=== PATIENT | female | born 1935 | race Two or more races ===

== ENCOUNTER 2023-06-02 23:38 | Inpatient (IN) | payer MEDICARE ==
[~2023-06-02] VITALS: Ht 167.6 cm; Wt 66.2 kg
[2023-06-03 00:30] LABS: APPEARANCE,URINE CLEAR (CLEAR); BILIRUBIN,URINE NEGATIVE (NEGATIVE); BLOOD, URINE NEGATIVE Ery/uL (NEGATIVE); COLOR,URINE YELLOW (YELLOW); KETONES,URINE NEGATIVE (NEGATIVE); LEUKOCYTE ESTERASE ,URINE NEGATIVE (NEGATIVE); NITRITE, URINE NEGATIVE (NEGATIVE); PROTEIN,URINE NEGATIVE (NEGATIVE); UGLUCOSE NEGATIVE (NEGATIVE); UROBILINOGEN,URINE 0.2 EU/dL (0.2)
[2023-06-03 00:40] LABS: BASOPHILS % (AUTO) 0.5 % (0.0-2.0); EOSINOPHILS # (AUTO) 0.5 K/uL (0.0-0.7); HEMATOCRIT 36 % (33-45); HEMOGLOBIN 11.9 g/dL (11.5-14.8); LYMPHOCYTES # (AUTO) 2.9 K/uL (0.8-4.8); LYMPHOCYTES % (AUTO) 34.5 % (20.0-44.0); MEAN CORPUSCULAR HEMOGLOBIN 29 PG (26.0-33.0); MEAN CORPUSCULAR HGB CONC 33 g/dl (31.0-36.0); MEAN CORPUSCULAR VOLUME 86 fL (82-100); MONOCYTES # (AUTO) 0.7 K/uL (0.1-1.30); MONOCYTES % (AUTO) 8.3 % (2.0-12.0); NEUTROPHILS # (AUTO) 4.2 K/uL (1.8-8.9); NEUTROPHILS % (AUTO) 50.7 % (43.0-81.0); PLATELET COUNT (AUTO) 243 K/uL (150-450); RED BLOOD CELL COUNT(AUTO) 4.17 MIL/uL (4.0-5.2); RED CELL DISTRIBUTION WIDTH 13.4 % (11.5-15.0); WHITE BLOOD COUNT (AUTO) 8.3 K/uL (4.3-11.0)
[2023-06-03] MEDS ORDERED: MULT-754 PO (00:40)
[2023-06-03] MEDS ORDERED: TRAZ-182 PO (00:40)
[2023-06-03] MEDS ORDERED: ROSU10TA2 PO (00:40)
[2023-06-03] MEDS ORDERED: DOCU100C36 PO (00:40)
[2023-06-03] MEDS ORDERED: CYAN10006 IM (00:40)
[2023-06-03] MEDS ORDERED: CHOL400T11 PO (00:40)
[2023-06-03] MEDS ORDERED: QUET25TA PO (00:40)
[2023-06-03 00:45] LABS: AMPHETAMINE, URINE NEGATIVE (NEGATIVE); BARBITURATE, URINE NEGATIVE (NEGATIVE); BENZODIAZEPINE, URINE NEGATIVE (NEGATIVE); CANNABINOID, URINE NEGATIVE (NEGATIVE); COCCAINE, URINE NEGATIVE (NEGATIVE); OPIATE, URINE NEGATIVE (NEGATIVE); PHENCYCLIDINE SCREEN,URINE NEGATIVE (NEGATIVE)
[2023-06-03 01:05] LABS: ALANINE AMINOTRANSFERASE 12 U/L (12-78); ALBUMIN 3.2 g/dL (3.4-5.0); ALCOHOL, BLOOD < 3 mg/dL (0-10); ALKALINE PHOSPHATASE 79 U/L (46-116); ASPARTATE AMINOTRANSFERASE 18 U/L (15-37); BILIRUBIN,DIRECT 0.1 mg/dL (0.0-0.2); BILIRUBIN,TOTAL 0.4 mg/dL (0.2-1.0); CARBON DIOXIDE 23 mmol/L (21-32); CHLORIDE 107 mmol/L (98-107); CREATININE 1.2 mg/dL (0.6-1.3); GLUCOSE 92 mg/dL (74-106); POTASSIUM 3.7 mmol/L (3.5-5.1); SODIUM SERUM 141 mmol/L (136-145); UREA NITROGEN, BLOOD 16 mg/dL (7-18)
[2023-06-03 01:18] LABS: ACETAMINOPHEN <10 ug/ml (10-30)
[2023-06-03] MEDS ORDERED: MAGNESIUM HYDROXIDE 30 ML UDC PO PRN ×2 (02:30→15:30)
[2023-06-03] MEDS ORDERED: MAG HYDROX/AL HYDROX/SIMETH 30 ML UDC PO PRN (02:30)
[2023-06-03] MEDS ORDERED: TEMAZEPAM 7.5 MG CAPSULE PO PRN (02:30)
[2023-06-03] MEDS ORDERED: ACETAMINOPHEN 325 MG TABLET PO PRN ×2 (02:30→15:30)
[2023-06-03] MEDS: BLOOD SUGAR DIAGNOSTIC 1 EACH STRIP IN ONE (02:58)
[2023-06-03 03:22] VITALS: BP 119/70; TEMP 98; O2SAT 98
[2023-06-03 08:00] VITALS: BP 142/61; TEMP 98.1; O2SAT 98
[2023-06-03] MEDS ORDERED: ACET-868 PO (08:21)
[2023-06-03] MEDS ORDERED: ACET-2605 PO (08:21)
[2023-06-03] MEDS ORDERED: MAGN400O6 PO (08:21)
[2023-06-03] MEDS ORDERED: CHOL100043 PO (08:21)
[2023-06-03] MEDS ORDERED: CALC355O18 PO (08:21)
[2023-06-03] MEDS: QUETIAPINE FUMARATE 25 MG TABLET PO SCH (08:56)
[2023-06-03] MEDS: DIVALPROEX SODIUM 125 MG CAP.SPRINK PO SCH (08:57)
[2023-06-03] MEDS: Z GUARD REMEDY 4 OZ OINT TP SCH (09:56)
[2023-06-03] MEDS: CLOTRIMAZOLE 1% 15 GM TUBE TP SCH (09:56)
[2023-06-03] MEDS ORDERED: ACETAMINOPHEN ES 500 MG TABLET PO PRN (15:30)
[2023-06-03] MEDS: CHOLECALCIFEROL 1,000 UNIT TABLET (VIT D3) PO SCH (15:30)
[2023-06-03] MEDS ORDERED: HOME MED MISCELLANEOUS XX SCH (15:30)
[2023-06-03 16:00] VITALS: BP 116/58; TEMP 98.2; O2SAT 97
[2023-06-03] MEDS: LORAZEPAM 0.5 MG TABLET PO PRN (16:23)
[2023-06-03] MEDS: diphenhydrAMINE HCL 50 MG/ML VIAL IM ONE (16:44)
[2023-06-03] MEDS: OLANZAPINE 10 MG VIAL IM ONE (16:45)
[2023-06-03 20:00] VITALS: BP 145/64; TEMP 98.3; O2SAT 99
[2023-06-03] MEDS: QUETIAPINE FUMARATE 100 MG TABLET PO SCH (21:46)
[2023-06-04 08:00] VITALS: BP 127/64; TEMP 97.7; O2SAT 99
[2023-06-04] MEDS: MULTIVITAMIN/LUTEIN/MINERALS 1 TAB PO SCH (08:35)
[2023-06-04] MEDS: ATORVASTATIN 40 MG TABLET PO SCH (08:35)
[2023-06-04] MEDS: DOCUSATE SODIUM 250 MG CAPSULE PO SCH (08:35)
[2023-06-04 16:00] VITALS: BP 114/60; TEMP 98.6; O2SAT 97
[2023-06-04] MEDS: ENSURE ENLIVE 237 ML LIQUID (VANILLA) PO SCH (17:41)
[2023-06-04 20:00] VITALS: BP 132/71; TEMP 97.6; O2SAT 95
[2023-06-05 08:00] VITALS: BP 124/76; TEMP 98.4; O2SAT 96
[2023-06-05 16:00] VITALS: BP 126/71; TEMP 98.4; O2SAT 99
[2023-06-05 16:06] LABS: ALBUMIN 2.8 g/dL (3.4-5.0); BILIRUBIN,TOTAL 0.6 mg/dL (0.2-1.0); CALCIUM, SERUM 8.6 mg/dL (8.5-10.1); CHOLESTEROL 110 mg/dL (<200); CREATININE 1.2 mg/dL (0.6-1.3); HDL CHOLESTEROL 29 mg/dL (40-60); LDL 70 mg/dL (0-99); POTASSIUM 4.2 mmol/L (3.5-5.1); TOTAL PROTEIN, SERUM 6.5 g/dL (6.4-8.2); TRIGLYCERIDES 98 mg/dL (30-150)
[2023-06-05 20:00] VITALS: BP 135/71; TEMP 98.2; O2SAT 97
[2023-06-06 08:00] VITALS: BP 128/91; TEMP 97.8; O2SAT 97
[2023-06-06 16:00] VITALS: BP 110/57; TEMP 98.6; O2SAT 98
[2023-06-06 20:43] VITALS: BP 150/54; TEMP 98.4; O2SAT 98
[2023-06-07 08:00] VITALS: BP 149/79; TEMP 97.9; O2SAT 99
[2023-06-07 16:00] VITALS: BP 103/64; TEMP 97.9; O2SAT 100
[2023-06-07 20:24] VITALS: BP 151/62; TEMP 97.9; O2SAT 98
[2023-06-07 21:54] VITALS: BP 140/68; TEMP 98.6; O2SAT 99
[2023-06-08 16:00] VITALS: BP 124/71; TEMP 98.7; O2SAT 98
[2023-06-08] MEDS: QUETIAPINE FUMARATE 25 MG TABLET PO SCH (21:02)
[2023-06-08 21:25] VITALS: BP 126/58; TEMP 97.9; O2SAT 99
[2023-06-09 08:00] VITALS: BP 134/55; TEMP 98.7; O2SAT 97
[2023-06-09 16:00] VITALS: BP 152/70; TEMP 97.7; O2SAT 100
[2023-06-09 22:10] VITALS: BP 141/66; TEMP 98.6; O2SAT 99
[2023-06-10 08:00] VITALS: BP 137/52; TEMP 97.7; O2SAT 99
[2023-06-10 16:00] VITALS: BP 120/59; TEMP 98.2; O2SAT 96
[2023-06-10] MEDS: Z GUARD REMEDY 4 OZ OINT TP PRN (16:06)
[2023-06-10 20:00] VITALS: BP 120/45; TEMP 98.4; O2SAT 97
[2023-06-11 08:00] VITALS: BP 121/67; TEMP 98; O2SAT 95
[2023-06-11 16:00] VITALS: BP 117/51; TEMP 98.9; O2SAT 99
[2023-06-11 20:00] VITALS: BP 146/50; TEMP 98.1; O2SAT 96
[2023-06-11] MEDS: QUETIAPINE FUMARATE 100 MG TABLET PO SCH (21:17)
[2023-06-12 08:00] VITALS: BP 141/98; TEMP 97.9; O2SAT 99
[2023-06-12 16:00] VITALS: BP 125/94; TEMP 98; O2SAT 99
[2023-06-13 08:00] VITALS: BP 132/67; TEMP 97.8; O2SAT 96
[2023-06-13 16:00] VITALS: BP 125/56; TEMP 98; O2SAT 96
[2023-06-13 21:10] VITALS: BP 136/55; TEMP 98.1; O2SAT 98
[2023-06-14 08:00] VITALS: BP 140/52; TEMP 97.5; O2SAT 95
[2023-06-14 16:00] VITALS: BP 114/55; TEMP 98.6; O2SAT 97
[2023-06-14 20:39] VITALS: BP 128/51; TEMP 98.6; O2SAT 97
[2023-06-15 08:00] VITALS: BP 119/51; TEMP 97.8; O2SAT 97
[2023-06-15 16:08] VITALS: BP 91/71; TEMP 98; O2SAT 96
[2023-06-15 21:05] VITALS: BP 115/53; TEMP 97.9; O2SAT 96
[2023-06-16 08:00] VITALS: BP 131/56; TEMP 97.7; O2SAT 96
== END 2023-06-16 14:20 | DRG 885 ==
LOC: ER 23:40 → GPS 06-03 00:59
PROVIDERS: ADMIT Nurse Practitioner Psychiatric/Mental Health; ATTEND Nurse Practitioner Acute Care
DX: F29 Unspecified psychosis not due to a substance or known physiological condition (principal); F03.92 Unspecified dementia, unspecified severity, with psychotic disturbance; E78.5 Hyperlipidemia, unspecified; F20.9 Schizophrenia, unspecified; Z79.899 Other long term (current) drug therapy; Z20.822 Contact with and (suspected) exposure to COVID-19; Z73.6 Limitation of activities due to disability
CPT/HCPCS: 36415; 71045-TC; 80048-TC; 80053-TC; 80061-TC; 80076-TC; 85025-TC; G0480; J1200; J3490

== ENCOUNTER 2023-09-28 10:24 | Inpatient (IN) | payer MEDICARE, OTHER ==
[~2023-09-28] VITALS: Ht 157.5 cm; Wt 68.9 kg
[~2023-09-28 10:24] MED LIST: ACET-2605 PO; ACET-868 PO; CALC355O18 PO; CHOL100043 PO; CYAN10006 IM; DOCU100C36 PO; MAGN400O6 PO; MULT-754 PO; QUET25TA PO; ROSU10TA2 PO; TRAZ-182 PO
[2023-09-28 10:52] LABS: BASOPHILS % (AUTO) 0.3 % (0.0-2.0); EOSINOPHILS # (AUTO) 0.4 K/uL (0.0-0.7); EOSINOPHILS % (AUTO) 5.7 % (0.0-6.0); HEMATOCRIT 35 % (33-45); HEMOGLOBIN 11.6 g/dL (11.5-14.8); LYMPHOCYTES # (AUTO) 2.4 K/uL (0.8-4.8); LYMPHOCYTES % (AUTO) 34.6 % (20.0-44.0); MEAN CORPUSCULAR HEMOGLOBIN 29 PG (26.0-33.0); MEAN CORPUSCULAR HGB CONC 34 g/dl (31.0-36.0); MEAN CORPUSCULAR VOLUME 85 fL (82-100); MONOCYTES # (AUTO) 0.7 K/uL (0.1-1.30); MONOCYTES % (AUTO) 9.4 % (2.0-12.0); NEUTROPHILS # (AUTO) 3.5 K/uL (1.8-8.9); PLATELET COUNT (AUTO) 180 K/uL (150-450); RED BLOOD CELL COUNT(AUTO) 4.06 MIL/uL (4.0-5.2)
[2023-09-28 10:57] LABS: CALCIUM, SERUM 8.7 mg/dL (8.5-10.1); CARBON DIOXIDE 26 mmol/L (21-32); CHLORIDE 105 mmol/L (98-107); CREATININE 1.2 mg/dL (0.6-1.3); GLUCOSE 110 mg/dL (74-106); POTASSIUM 4.1 mmol/L (3.5-5.1); SODIUM SERUM 138 mmol/L (136-145); UREA NITROGEN, BLOOD 22 mg/dL (7-18)
[2023-09-28 11:02] LABS: ALANINE AMINOTRANSFERASE 20 U/L (12-78); ALBUMIN 3.2 g/dL (3.4-5.0); ALCOHOL, BLOOD < 3 mg/dL (0-10); ALKALINE PHOSPHATASE 73 U/L (46-116); ASPARTATE AMINOTRANSFERASE 23 U/L (15-37); BILIRUBIN,DIRECT 0.1 mg/dL (0.0-0.2); BILIRUBIN,TOTAL 0.6 mg/dL (0.2-1.0); TOTAL PROTEIN, SERUM 7.2 g/dL (6.4-8.2)
[2023-09-28 11:05] LABS: ACETAMINOPHEN <10 ug/ml (10-30); SALICYLATE 1.2 mg/dL (2.8-20.0)
[2023-09-28] MEDS ORDERED: DOCU250C14 PO (12:07)
[2023-09-28] MEDS ORDERED: MULT-213 PO (12:07)
[2023-09-28] MEDS ORDERED: DIVA125C5 PO (12:07)
[2023-09-28] MEDS ORDERED: QUET100T PO (12:07)
[2023-09-28] MEDS ORDERED: ATOR40TA PO (12:07)
[2023-09-28 18:19] LABS: AMPHETAMINE, URINE NEGATIVE (NEGATIVE); BARBITURATE, URINE NEGATIVE (NEGATIVE); BENZODIAZEPINE, URINE NEGATIVE (NEGATIVE); CANNABINOID, URINE NEGATIVE (NEGATIVE); COCCAINE, URINE NEGATIVE (NEGATIVE); OPIATE, URINE NEGATIVE (NEGATIVE); PHENCYCLIDINE SCREEN,URINE NEGATIVE (NEGATIVE)
[2023-09-28 18:32] VITALS: BP 151/75; TEMP 98.7; O2SAT 98
[2023-09-28 19:05] LABS: APPEARANCE,URINE CLEAR (CLEAR); BILIRUBIN,URINE NEGATIVE (NEGATIVE); BLOOD, URINE TRACE-INTA Ery/uL (NEGATIVE); COLOR,URINE YELLOW (YELLOW); KETONES,URINE NEGATIVE (NEGATIVE); LEUKOCYTE ESTERASE ,URINE 1+ (NEGATIVE); NITRITE, URINE NEGATIVE (NEGATIVE); PROTEIN,URINE NEGATIVE (NEGATIVE); UGLUCOSE NEGATIVE (NEGATIVE); UROBILINOGEN,URINE 0.2 EU/dL (0.2)
[2023-09-28 19:55] LABS: RBC,URINE 0-2 /HPF (0-2)
[2023-09-28 19:56] LABS: ADD URINE CULTURE YES; BACTERIA,URINE Few /HPF (None Seen); SQUAMOUS EPITHELIAL CELL,UR Few /HPF (None Seen)
[2023-09-28 20:22] VITALS: BP 115/86; TEMP 98.4; O2SAT 99
[2023-09-29] MEDS: BLOOD SUGAR DIAGNOSTIC 1 EACH STRIP IN ONE (01:26)
[2023-09-29] MEDS ORDERED: MAGNESIUM HYDROXIDE 30 ML UDC PO PRN (01:30)
[2023-09-29] MEDS ORDERED: ACETAMINOPHEN 325 MG TABLET PO PRN (01:30)
[2023-09-29] MEDS ORDERED: MAG HYDROX/AL HYDROX/SIMETH 30 ML UDC PO PRN (01:30)
[2023-09-29 07:46] LABS: ALBUMIN 2.9 g/dL (3.4-5.0); BILIRUBIN,TOTAL 0.6 mg/dL (0.2-1.0); CALCIUM, SERUM 8.9 mg/dL (8.5-10.1); CREATININE 1.3 mg/dL (0.6-1.3); POTASSIUM 3.7 mmol/L (3.5-5.1); TOTAL PROTEIN, SERUM 6.8 g/dL (6.4-8.2)
[2023-09-29 08:00] VITALS: BP 148/74; TEMP 98; O2SAT 98
[2023-09-29] MEDS: DOCUSATE SODIUM 250 MG CAPSULE PO SCH (08:48)
[2023-09-29] MEDS: ATORVASTATIN 40 MG TABLET PO SCH (08:48)
[2023-09-29 08:55] LABS: CHOLESTEROL 123 mg/dL (<200); HDL CHOLESTEROL 33 mg/dL (40-60); LDL 67 mg/dL (0-99); TRIGLYCERIDES 111 mg/dL (30-150)
[2023-09-29 16:00] VITALS: BP 120/76; TEMP 98.1; O2SAT 97
[2023-09-29 20:25] VITALS: BP 130/64; TEMP 98.3; O2SAT 100
[2023-09-29] MEDS: DIVALPROEX SODIUM 125 MG CAP.SPRINK PO SCH (21:09)
[2023-09-29 22:25] VITALS: BP 130/64; TEMP 98.3; O2SAT 100
[2023-09-29] MEDS: QUETIAPINE FUMARATE 100 MG TABLET PO SCH (22:34)
[2023-09-30 08:00] VITALS: BP 116/67; TEMP 98.4; O2SAT 96
[2023-09-30] MEDS: QUETIAPINE FUMARATE 25 MG TABLET PO SCH (09:06)
[2023-09-30 16:35] VITALS: BP 98/56; TEMP 98.2; O2SAT 96
[2023-09-30 20:00] VITALS: BP 122/71; TEMP 98.1; O2SAT 98
[2023-10-01 08:00] VITALS: BP 100/95; TEMP 97.7; O2SAT 98
[2023-10-01 16:00] VITALS: BP 98/59; TEMP 98.2; O2SAT 96
[2023-10-01 20:00] VITALS: BP 115/67; TEMP 98; O2SAT 98
[2023-10-02 08:00] VITALS: BP 119/63; TEMP 97.5; O2SAT 98
[2023-10-02 16:32] VITALS: BP 111/50; TEMP 97.9; O2SAT 95
[2023-10-02 20:00] VITALS: BP 115/68; TEMP 98.2; O2SAT 97
[2023-10-03 08:00] VITALS: BP 109/59; TEMP 97.8; O2SAT 96
[2023-10-03 16:00] VITALS: BP 126/75; TEMP 97.9; O2SAT 98
[2023-10-03 21:20] VITALS: BP 111/98; TEMP 97.9; O2SAT 100
[2023-10-04 08:00] VITALS: BP 115/52; TEMP 98.1; O2SAT 98
[2023-10-04] MEDS: CEPHALEXIN MONOHYDRATE 500 MG CAPSULE PO SCH (12:00)
[2023-10-04 16:00] VITALS: BP 99/53; TEMP 98.1; O2SAT 97
[2023-10-04 20:00] VITALS: BP 110/55; TEMP 98
[2023-10-04 20:23] VITALS: BP 110/55; TEMP 98; O2SAT 97
[2023-10-05 08:00] VITALS: BP 109/63; TEMP 97.7; O2SAT 96
[2023-10-05 15:59] VITALS: BP 119/62; TEMP 98.6; O2SAT 96
[2023-10-05] MEDS: ENSURE ENLIVE CHOC 237 ML CAN PO SCH (18:03)
[2023-10-05 20:51] VITALS: BP 107/45; TEMP 97.5; O2SAT 97
[2023-10-05 22:00] VITALS: BP 110/60; TEMP 98; O2SAT 98
[2023-10-06 16:00] VITALS: BP 125/60; TEMP 98.7; O2SAT 98
[2023-10-06 20:41] VITALS: BP 109/55; TEMP 98.5; O2SAT 97
[2023-10-07 08:00] VITALS: BP 115/54; TEMP 98; O2SAT 98
[2023-10-07 16:00] VITALS: BP 119/60; TEMP 98; O2SAT 98
[2023-10-07 20:00] VITALS: BP 122/62; TEMP 98.3; O2SAT 98
[2023-10-08 08:00] VITALS: BP 117/66; TEMP 98.2; O2SAT 96
[2023-10-08 16:00] VITALS: BP 103/50; TEMP 98; O2SAT 97
[2023-10-08 20:00] VITALS: BP 132/56; TEMP 97.6; O2SAT 99
[2023-10-09 08:00] VITALS: BP 126/71; TEMP 98; O2SAT 99
[2023-10-09 16:00] VITALS: BP 122/64; TEMP 98.7; O2SAT 99
[2023-10-09 20:00] VITALS: BP 144/65; TEMP 98.3; O2SAT 97
[2023-10-10 08:00] VITALS: BP 120/64; TEMP 97.9; O2SAT 98
[2023-10-10 16:00] VITALS: BP 103/53; TEMP 98.1; O2SAT 98
[2023-10-10 20:36] VITALS: BP 124/55; TEMP 97.9; O2SAT 98
[2023-10-11 08:00] VITALS: BP 110/55; TEMP 98.7; O2SAT 95
[2023-10-11 16:00] VITALS: BP 123/56; TEMP 98.7; O2SAT 98
[2023-10-11 16:25] LABS: BASOPHILS % (AUTO) 0.2 % (0.0-2.0); EOSINOPHILS # (AUTO) 0.3 K/uL (0.0-0.7); EOSINOPHILS % (AUTO) 3.7 % (0.0-6.0); HEMATOCRIT 34 % (33-45); HEMOGLOBIN 11.4 g/dL (11.5-14.8); MEAN CORPUSCULAR HEMOGLOBIN 29 PG (26.0-33.0); MEAN CORPUSCULAR HGB CONC 33 g/dl (31.0-36.0); MEAN CORPUSCULAR VOLUME 88 fL (82-100); MONOCYTES # (AUTO) 0.7 K/uL (0.1-1.30); MONOCYTES % (AUTO) 8.5 % (2.0-12.0); NEUTROPHILS # (AUTO) 5.6 K/uL (1.8-8.9); NEUTROPHILS % (AUTO) 64.6 % (43.0-81.0); PLATELET COUNT (AUTO) 156 K/uL (150-450); RED CELL DISTRIBUTION WIDTH 13.8 % (11.5-15.0); WHITE BLOOD COUNT (AUTO) 8.7 K/uL (4.3-11.0)
[2023-10-11 17:38] LABS: ALBUMIN 2.5 g/dL (3.4-5.0); BILIRUBIN,TOTAL 0.6 mg/dL (0.2-1.0); CALCIUM, SERUM 8.9 mg/dL (8.5-10.1); CREATININE 1.1 mg/dL (0.6-1.3); POTASSIUM 4.2 mmol/L (3.5-5.1); TOTAL PROTEIN, SERUM 6.4 g/dL (6.4-8.2)
[2023-10-11 21:28] VITALS: BP 107/60; TEMP 97.5; O2SAT 96
[2023-10-12 08:00] VITALS: BP 111/55; TEMP 98.6; O2SAT 97
[2023-10-12 16:00] VITALS: BP 129/54; TEMP 98.6; O2SAT 98
[2023-10-12 20:33] VITALS: BP 130/50; TEMP 98; O2SAT 97
[2023-10-13 08:00] VITALS: BP 114/55; TEMP 98.1; O2SAT 98
[2023-10-13 14:58] LABS: BASOPHILS % (AUTO) 0.2 % (0.0-2.0); EOSINOPHILS # (AUTO) 0.4 K/uL (0.0-0.7); EOSINOPHILS % (AUTO) 6.8 % (0.0-6.0); HEMATOCRIT 31 % (33-45); HEMOGLOBIN 10.5 g/dL (11.5-14.8); LYMPHOCYTES # (AUTO) 2.2 K/uL (0.8-4.8); LYMPHOCYTES % (AUTO) 36.6 % (20.0-44.0); MEAN CORPUSCULAR HEMOGLOBIN 29 PG (26.0-33.0); MEAN CORPUSCULAR HGB CONC 34 g/dl (31.0-36.0); MEAN CORPUSCULAR VOLUME 87 fL (82-100); MONOCYTES # (AUTO) 0.6 K/uL (0.1-1.30); MONOCYTES % (AUTO) 9.6 % (2.0-12.0); NEUTROPHILS # (AUTO) 2.8 K/uL (1.8-8.9); NEUTROPHILS % (AUTO) 46.8 % (43.0-81.0); PLATELET COUNT (AUTO) 153 K/uL (150-450); RED BLOOD CELL COUNT(AUTO) 3.59 MIL/uL (4.0-5.2); RED CELL DISTRIBUTION WIDTH 13.6 % (11.5-15.0)
[2023-10-13 15:12] LABS: ALBUMIN 2.3 g/dL (3.4-5.0); BILIRUBIN,TOTAL 0.5 mg/dL (0.2-1.0); CALCIUM, SERUM 8.9 mg/dL (8.5-10.1); CREATININE 0.9 mg/dL (0.6-1.3); POTASSIUM 3.8 mmol/L (3.5-5.1); TOTAL PROTEIN, SERUM 6.2 g/dL (6.4-8.2)
[2023-10-13 16:00] VITALS: BP 117/62; TEMP 97.9; O2SAT 96
[2023-10-13 20:00] VITALS: BP 123/59; TEMP 98.3; O2SAT 100
[2023-10-14 08:00] VITALS: BP 106/53; TEMP 97.7; O2SAT 94
== END 2023-10-14 14:00 | DRG 885 ==
LOC: ER 10:29 → GPS 12:58
PROVIDERS: ADMIT Nurse Practitioner Psychiatric/Mental Health; ATTEND Internal Medicine
DX: F39 Unspecified mood [affective] disorder (principal); F03.93 Unspecified dementia, unspecified severity, with mood disturbance; F03.918 Unspecified dementia, unspecified severity, with other behavioral disturbance; F03.92 Unspecified dementia, unspecified severity, with psychotic disturbance; E44.0 Moderate protein-calorie malnutrition; N39.0 Urinary tract infection, site not specified; F29 Unspecified psychosis not due to a substance or known physiological condition; E78.5 Hyperlipidemia, unspecified; F20.9 Schizophrenia, unspecified; Z20.822 Contact with and (suspected) exposure to COVID-19; Z79.899 Other long term (current) drug therapy; E88.09 Other disorders of plasma-protein metabolism, not elsewhere classified; B96.89 Other specified bacterial agents as the cause of diseases classified elsewhere
CPT/HCPCS: 36415; 80048-TC; 80053-TC; 80061-TC; 80076-TC; 80164-TC; 81001; 85025-TC; 87081-TC; 87086-TC; G0480